=== PATIENT | male | born 1965 | race Caucasian/White ===

== ENCOUNTER 2025-01-29 11:19 | Emergency (ER) | payer BC, SELFPAY ==
[2025-01-29 11:22] VITALS: BP 149/92; PULSE 106; RESP 16; TEMP 37.1; O2SAT 99; BMI 28.5
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
--- NOTE | 2025-01-29 11:24 | ECG_ITS ---
APPROVED REPORT Exam: Resting ECG HR:97 bpm ECG Measurements Heart Rate 97 AXES IN 171 P 56 QRSd 90 QRS -24 QT 343 T 39 QTc 397 Conclusion SINUS RHYTHM BORDERLINE LEFT AXIS DEVIATION [QRS AXIS < -20] BORDERLINE ECG UNCONFIRMED REPORT Normal sinus rhythm. No ST elevation or depression. QTc normal at 397 Electronically signed by : VELVET DEL RIO, 01/29/2025 16:04:15
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
[2025-01-29 12:01] LABS: Microscopic, Urine URINE MICROSCOPIC (MICROSCOPIC)
[2025-01-29 12:02] LABS: Hematocrit 45.1 % (42.0-52.0); Hemoglobin 15.6 g/dL (14.1-18.0); Immature Granulocytes % 0.6 %; Mean Corpuscular HGB Conc 34.6 g/dL (31.8-35.4); Mean Corpuscular Hemoglobin 30.6 pg (27.0-31.2); Mean Corpuscular Volume 88.6 fl (80-94); Nucleated Red Blood Cells % 0 %; Platelet Count 263 K/mm3 (142-424); Red Blood Count 5.09 M/mm3 (4.60-6.20); Red Cell Distribution Width-SD 41.7 fL; White Blood Count 8.0 K/mm3 (4.8-10.8)
[2025-01-29] MEDS: SODIUM CHLORIDE 0.9% 10ML SYR (RAD ONLY) 10 ML IV (12:03)
[2025-01-29] MEDS: IOPAMIDOL-370 (76%);100ML BOTTLE 160 ML IV (12:04)
[2025-01-29] MEDS: 0.9 % SODIUM CHLORIDE 50 ML VIAL 100 ML IV (12:04)
[2025-01-29 12:07] LABS: Albumin Level 4.4 g/dl (3.5-5.0); Chloride 103 mmol/L (98-107); Potassium 3.7 mmoL/L (3.5-5.1); Sodium 137 mmol/L (136-145)
[2025-01-29 12:08] LABS: Bilirubin,Urine Negative (Negative); Color,Urine YELLOW (Yellow); Glucose,Urine (UA) Negative (Negative); Ketones,Urine Negative (Negative); Leukocyte Esterase,Urine Negative (Negative); PH,Urine 6.5 (5.0-8.5); Protein,Urine Negative (Negative); Specific Gravity, Urine 1.010 (1.005-1.030); Urobilinogen,Urine 0.2 EU/dl (0.2)
[2025-01-29 12:10] LABS: Activated Partial Thrombo Time 25.2 seconds (22.8-30.6); Alanine Aminotransferase 22 U/L (12-78); Albumin/Globulin Ratio 1.5 (1.1-1.8); Alkaline Phosphatase 70 U/L (38-126); Anion Gap 12.7 mEq/L (5-15); Aspartate Amino Transferase 34 U/L (17-59); Bilirubin,Total 0.8 mg/dl (0.2-1.3); Blood Urea Nitrogen 19 mg/dl (9-20); Calcium 9.3 mg/dl (8.4-10.2); Carbon Dioxide 25 mmol/L (22.0-30.0); Creatinine Clearance Estimated 97 mL/min (50-200); Creatinine,Serum 1.10 mg/dl (0.66-1.25); Estimated Glomerular Filt Rate 69 ml/min (>60); GFR (African American) 83 ML/MIN (>60); Globulin 2.9 g/dL (1.3-3.2); Glucose 99 mg/dl (74-100); INR 1.03 (0.9-1.1); Prothrombin Time 11.4 seconds (10.1-12.5); Total Protein,Serum 7.3 g/dl (6.3-8.2)
[2025-01-29] MEDS: ACETAMINOPHEN 1,000MG/100ML VIAL 1000 MG IV (12:23)
[2025-01-29] MEDS: ONDANSETRON 4MG/2ML VIAL 4 MG IV (12:23)
[2025-01-29 12:30] VITALS: BP 160/97; PULSE 99; RESP 18; O2SAT 97
[2025-01-29 12:36] VITALS: BP 158/92; PULSE 106; RESP 20; O2SAT 97
[2025-01-29 12:37] VITALS: BP 158/99; PULSE 96; RESP 17; O2SAT 98
[2025-01-29 12:58] LABS: WBC,Urine Occasional #/hpf (0-3)
[2025-01-29 13:00] VITALS: BP 157/83; PULSE 100; RESP 20; O2SAT 96
[2025-01-29 13:31] LABS: Hepatitis C Ab Qual. W/ RFX NEGATIVE (Negative)
[2025-01-29 13:46] VITALS: BP 163/99; PULSE 101; RESP 17; TEMP 37.1; O2SAT 98
== END 2025-01-29 13:48 | disposition home or self-care (01) ==
PROVIDERS: Nurse Practitioner; Emergency Provider Student in an Organized Health Care Education/Training Program
DX: M25.512 Pain in left shoulder (principal); S50.812A Abrasion of left forearm, initial encounter; V49.40XA Driver injured in collision with unspecified motor vehicles in traffic accident, initial encounter
CPT/HCPCS: 70450; 70496; 70498; 71045; 71275; 72125; 72128; 72131; 72170; 73030; 73100; 74174; 80053; 81001; 85025; 85610; 85730; 86803; 87389; 93005; 96374; 96375; 99285; 99291; G0390; J0131; J2405; Q9967